=== PATIENT | male | born 1990 | race Two or more races ===

== ENCOUNTER 2019-07-27 08:22 | Emergency (ER) | payer SELFPAY ==
[~2019-07-27] VITALS: Ht 167.6 cm; Wt 0.7 kg
[2019-07-27] MEDS ORDERED: ONDANSETRON 2MG/ML, 2ML ONE (08:40)
[2019-07-27] MEDS ORDERED: DIPH,PERTUSS(ACELL),TET VAC/PF 0.5 ML IM-VACC ONE ×2 (08:47→09:00)
[2019-07-27] MEDS ORDERED: LIDOCAINE-MPF 1%, 2ML ONE (08:48)
[2019-07-27] MEDS ORDERED: LIDOCAINE-MPF 1%, 5ML INFIL ONE (09:00)
[2019-07-27] MEDS ORDERED: SODIUM CHLORIDE 0.9% 1,000ML IVBOLUS ONE (09:00)
[2019-07-27] MEDS ORDERED: ONDANSETRON 2MG/ML, 2ML IVPush ONE (09:00)
[2019-07-27] MEDS ORDERED: PLEASE ENTER WEIGHT MC SCH (09:00)
--- NOTE | 2019-07-27 09:00 | NUR ---
pt to ct w myself, and tech
[2019-07-27 09:16] LABS: BASOPHILS # (AUTO) 0.03 x10^3/uL (0-0.1); BASOPHILS % (AUTO) 0 % (0-1); EOSINOPHILS # (AUTO) 0.13 x10^3/uL (0-0.4); EOSINOPHILS % (AUTO) 1 % (1-7); LYMPHOCYTES # (AUTO) 2.24 x10^3/uL (1-3.4); LYMPHOCYTES % (AUTO) 16 % (22-44); MD NO; MEAN CORPUSCULAR HEMOGLOBIN 29.5 pg (27.5-34.5); MEAN CORPUSCULAR HGB CONC 33.5 g/dL (33.2-36.2); MEAN CORPUSCULAR VOLUME 88.1 fL (81-97); MEAN PLATELET VOLUME 8.2 fL (7.4-10.4); MONOCYTES # (AUTO) 0.71 x10^3/uL (0.2-0.8); MONOCYTES % (AUTO) 5 % (2-9); NEUTROPHILS % (AUTO) 77 % (42-75); PLATELET COUNT 287 x10^3/uL (130-400); RED CELL DISTRIBUTION WIDTH 12.9 % (9.4-14.8)
[2019-07-27 09:18] LABS: ALBUMIN 3.8 g/dL (3.4-5.0); ANION GAP 9 mmol/L (5-15); CALCIUM 8.1 mg/dL (8.5-10.1); CHLORIDE 106 mmol/L (98-107); INTERNATIONAL NORMALIZED RATIO 0.94 (0.93-1.1)
[2019-07-27 09:22] LABS: ALANINE AMINOTRANSFERASE 19 U/L (12-78); ALKALINE PHOSPHATASE 102 U/L (45-117); BILIRUBIN,TOTAL 0.8 mg/dL (0.2-1.0); CREATININE 1.44 mg/dL (0.7-1.3)
--- NOTE | 2019-07-27 09:25 | NUR ---
([facility] [place]
--- NOTE | 2019-07-27 09:30 | NUR ---
kaylyn is at the bedside for sutures/jesse.
[2019-07-27] MEDS ORDERED: BACITRACIN ZINC OINT 500U/GM, 0.9 GM ONE (09:49)
--- NOTE | 2019-07-27 09:57 | NUR ---
is at bedside for dispo.
[2019-07-27 09:59] VITALS: BP 111/66
--- NOTE | 2019-07-27 09:59 | NUR ---
pt is sleeping sonorously on an e.r. gurney. i will allow him to metabolize etoh for some time prior to ambulation/d/c.
--- NOTE | 2019-07-27 11:51 | NUR ---
called jone she is on her way 15 min out so pt can be dc. as
== END 2019-07-27 12:13 | disposition home or self-care (01) ==
LOC: ED 12:00
DX: S01.01XA Laceration without foreign body of scalp, initial encounter (principal); S09.90XA Unspecified injury of head, initial encounter; F10.229 Alcohol dependence with intoxication, unspecified; J32.0 Chronic maxillary sinusitis; I45.10 Unspecified right bundle-branch block; I51.7 Cardiomegaly; V00.131A Fall from skateboard, initial encounter; Y93.89 Activity, other specified; Y92.488 Other paved roadways as the place of occurrence of the external cause; Y99.8 Other external cause status; Y90.9 Presence of alcohol in blood, level not specified
CPT/HCPCS: 12011; 12013; 70450; 72125; 80053; 82962; 85025; 85610; 90471; 90715; 93005; 96374; 96375; 99285; J2405; J7030